=== PATIENT | female | born 2000 ===

== ENCOUNTER 2021-03-18 18:10 | Emergency (ER) | payer OTHER ==
[2021-03-18 19:28] VITALS: BP 121/73
--- NOTE | 2021-03-18 19:40 | Emergency Department Report ---
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 Patient states that she was inside and accidentally tripped and fell. She states that she fell on a outstretched hand. she states since then she has had pain. She denies ever injuring in the past. She denies any numbness or weakness. She has not taken anything for her pain. She is right-hand dominant. No past medical history. No allergies to medications. Last menstrual cycle was last month, she denies any possibility of . - Related Data Previous Rx's Medication Instructions Recorded Last Taken Type Ibuprofen [Motrin 600 MG tab] 600 mg PO Q8H PRN #20 tablet 03/18/21 Unknown Rx Allergies Allergy/AdvReac Type Severity Reaction Status Date / Time No Known Allergies Allergy Unverified 03/18/21 19:21 ED Review of Systems ROS: Stated complaint: LT HAND PAIN FELL Other details as noted in HPI Comment: All other systems reviewed and negative ED Past Medical Hx - Past Medical History Previous Medical History?: No - Surgical History Past Surgical History?: No - Social History Smoking Status: Never Smoker Substance Use Type: None - Medications Home Medications: Home Medications Medication Instructions Recorded Confirmed Last Taken Type Ibuprofen [Motrin 600 MG tab] 600 mg PO Q8H PRN #20 tablet 03/18/21 Unknown Rx ED Physical Exam - General Limitations: No Limitations General appearance: alert, in no apparent distress - Head Head exam: Present: atraumatic, normocephalic - Eye Eye exam: Present: normal appearance - ENT ENT exam: Present: mucous membranes moist - Extremities Exam Extremities exam: Present: other (ttp and edema present to the left lateral wrist and left lateral hand, there is snuffbox ttp, decreased ROM of the wrist secondary to pain, there is edema present, neurovascularly intact) - Neurological Exam Neurological exam: Present: alert, oriented X3 - Psychiatric Psychiatric exam: Present: normal affect, normal mood - Skin Skin exam: Present: warm, dry, intact ED Course Vital Signs 03/18/21 19:22 Temperature 98.6 F Pulse Rate 85 Respiratory 16 Rate Blood Pressure 121/73 O2 Sat by Pulse 98 Oximetry ED Medical Decision Making - Radiology Data Radiology results: report reviewed Ordering Physician: FRANKLYN BARNETT Date of Service: 03/18/21 Procedure(s): XR wrist 3+V LT Accession Number(s): [id number] cc: FRANKLYN BARNETT Fluoro Time In Minutes: LEFT WRIST 4 VIEWS INDICATION / CLINICAL INFORMATION: fall on outstretched hand, left wrist pain COMPARISON: None available. FINDINGS: The study is limited by lack of a true lateral view. BONES and JOINT(S): No acute fracture or subluxation. No significant arthritis. SOFT TISSUES: No significant abnormality. ADDITIONAL FINDINGS: None. IMPRESSION: 1. No acute findings. Signer Name: Chester Tai MD Signed: 03/18/2021 8:26 PM Workstation Name: [id number] Transcribed By: HODAN Dictated By: Chseter Tai MD Electronically Authenticated By: Chester Tai MD Signed Date/Time: 03/18/212025 DD/ 23 TD/TT: Print - Medical Decision Making Patient is a 20-year-old female presents emergency room complaints of a left wrist injury that occurred just prior to arrival. Patient states that she was inside and accidentally tripped and fell. She states that she fell on a outstretched hand. she states since then she has had pain. She denies ever injuring in the past. She denies any numbness or weakness. She has not taken anything for her pain. She is right-hand dominant. No past medical history. No allergies to medications. Last menstrual cycle was last month, she denies any possibility of . vss. on exam: ttp and edema present to the left lateral wrist and left lateral hand, there is snuffbox ttp, decreased ROM of the wrist secondary to pain, there is edema present, neurovascularly intact. XR left wrist: 1. No acute findings. 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 given pain medication as she did not drive with improvement of symptoms. pt given prescription for medication. advised pt Please take medication as prescribed as needed. Follow-up with orthopedic doctor. Return to emergency room for any new or worsening symptoms. BRYAN Justice used for japanese interpretation during entire pt encounter Critical care attestation.: If time is entered above; I have spent that time in minutes in the direct care of this critically ill patient, excluding procedure time. ED Disposition Clinical Impression: Left wrist injury Qualifiers: Encounter type: initial encounter Qualified Code(s): S69.92XA - Unspecified injury of left wrist, hand and finger(s), initial encounter Disposition: TO HOME OR SELFCARE Is pt being admited?: No Does the pt Need Aspirin: No Condition: Stable Instructions: Wrist Sprain, Adult Additional Instructions: Please take medication as prescribed as needed. Follow-up with orthopedic doctor. Return to emergency room for any new or worsening symptoms. [employer] la medicacin prescrita segn sea necesario. Seguimiento con german ortopdibradnon. Regrese a la carleen de emergencias por cualquier sntoma nuevo o que empeore. Prescriptions: Ibuprofen [Motrin 600 MG tab] 600 mg PO Q8H PRN #20 tablet PRN Reason: Pain Referrals: [facility] [Provider Group] - 2-3 Days CHU BOX MD [Staff Physician] - 2-3 Days Time of Disposition: 20:35 Print Language: ROMANSH
--- NOTE | 2021-03-18 20:30 | XRay Report ---
LEFT WRIST 4 VIEWS INDICATION / CLINICAL INFORMATION: fall on outstretched hand, left wrist pain COMPARISON: None available. FINDINGS: The study is limited by lack of a true lateral view. BONES and JOINT(S): No acute fracture or subluxation. No significant arthritis. SOFT TISSUES: No significant abnormality. ADDITIONAL FINDINGS: None. IMPRESSION: 1. No acute findings. Signer Name: Chester Tai MD Signed: 03/18/2021 8:26 PM Workstation Name: [email or web address]
[2021-03-18] MEDS ORDERED: HYDROcodone/ACETAMINOPHEN 5-325 MG TAB PO ONE (20:34)
== END 2021-03-18 21:40 | disposition home or self-care (01) ==
LOC: ED 18:10
DX: S69.92XA Unspecified injury of left wrist, hand and finger(s), initial encounter (principal); Z79.899 Other long term (current) drug therapy; W01.0XXA Fall on same level from slipping, tripping and stumbling without subsequent striking against object, initial encounter; Y93.89 Activity, other specified; Y92.89 Other specified places as the place of occurrence of the external cause; Y99.8 Other external cause status
CPT/HCPCS: 99283